=== PATIENT | female | born 1995 | race Caucasian/White ===

== ENCOUNTER 2016-05-15 18:22 | Emergency (ER) | payer OTHER ==
--- NOTE | ~2016-05-15 | CT16 ---
[facility] A Service of [facility] RADIOLOGY TEXT RESULTS PATIENT: JORDY RESENDEZ LOCATION: SED : [birth year] UNIT #: [id number] AGE: [address]: Araceli Barraza APRN SEX: F ORDER DR: [id number] [place] [id number] E MR#: [id number] #: [id number] NAME: JORDY RESENDEZ : 1995 SEX: F STUDY DATE/TIME: 05/15/2016 19:26 UNIT: SED ROOM: STUDY DESCRIPTION: CT Angio Chest for PE Attending Physician: Araceli Barraza A.P.R.N. Ordering Physician: Araceli Barraza A.P.R.N. Primary Care Physician: No Primary Care Physician MEDICAL IMAGING REPORT This report is preliminary unless electronic signature is present. EXAM CTA chest, PE protocol. DATE OF EXAM 05/15/2016 INDICATIONS Chest pain, shortness of air and cough for the past 3 days. PROCEDURE Contrast-enhanced CTA of the chest attention on opacification of pulmonary arteries. Coronal 3-D MIP and sagittal reformatted images were reconstructed and submitted. 100 mL of Isovue-370. COMPARISON None. TECHNIQUE NOTE: This CT exam was performed with one or more of the following radiation dose reduction techniques: automatic exposure control, adjustment of mA and/or kV according to patient size, and iterative reconstruction. FINDINGS No evidence for pulmonary embolus. No evidence for acute aortic injury. No adenopathy. No acute findings in the included upper abdomen. There are a few small areas of ground-glass opacity right middle lobe and right upper lobe. No dense consolidation. No aggressive-appearing bone lesion. IMPRESSION 1. No evidence for pulmonary embolus. 2. A few patchy areas of ground-glass opacity in the right upper lobe and right middle lobe, probably representing infectious or [facility] A Service of [facility] RADIOLOGY TEXT RESULTS PATIENT: JORDY RESENDEZ LOCATION: SED : [birth year] UNIT #: [id number] AGE: [address]: Araceli Barraza APRN SEX: F ORDER DR: inflammatory change. 3. No dense consolidation. Dictated by... James Whatley M.D. THIS IS AN ELECTRONICALLY VERIFIED REPORT James Whatley M.D. at 05/17/2016 7:00 AM JESICA/isabela TD: 05/15/2016 22:33 JOB #: [id number] MEDICAL IMAGING REPORT
[~2016-05-15 18:22] MED LIST: DIFLUCAN PO; MACROBID100 MG DOB; MACROBID100 MG PO; MYCOLOG-II15 GM CR EXT; NAPROSYN500 MG PO; PHENERGAN25 M1 PO
[2016-05-15 18:56] LABS: BLOOD UREA NITROGEN 7 mg/dL (9-23); CALCIUM SERUM 8.8 mg/dL (8.4-10.2); CARBON DIOXIDE 28 mmol/L (22-31); CHLORIDE 103 mmol/L (100-111); CREATININE SERUM 0.7 mg/dL (0.6-1.4); GLOM FILT RATE Estimated ABOVE60 mL/min (>60); GLUCOSE FASTING 112 mg/dL (70-110); POTASSIUM 3.3 mmol/L (3.5-5.1); SODIUM 140 mmol/L (135-145)
[2016-05-15 18:58] LABS: BASOPHIL# 0.1 X10e3 (0.0-0.3); BASOPHIL% 1.3 % (0.0-2.5); DIFF IND NO; EOSINOPHIL# 0.6 X10e3 (0.0-0.7); EOSINOPHIL% 7.5 % (0.0-7.0); HEMATOCRIT 29.6 % (35.0-45.0); HEMOGLOBIN 9.3 gm/dl (12.0-16.0); LYMPHOCYTE# 2.7 X10e3 (1.0-3.5); LYMPHOCYTE% 35.9 % (17.0-45.0); MEAN CELL VOLUME 71.9 FL (83-96); MEAN CORPUSCULAR HEMOGLOBIN 22.7 PG (28-34); MEAN CORPUSCULAR HGB CONC 31.5 g/dL (30-36); MEAN PLATELET VOLUME 8.4 FL (6.5-11.5); MONOCYTE# 0.6 X10e3 (0.0-1.0); MONOCYTE% 7.6 % (3.0-12.0); NEUTROPHIL# 3.5 X10e3 (1.5-7.1); NEUTROPHIL% 47.7 % (40.0-75.0); PLATELET COUNT 282 X10e3 (140-420); RED BLOOD COUNT 4.11 X10e6 (3.90-5.30); RED CELL DISTRIBUTION WIDTH 15.6 % (11.0-15.5); WHITE BLOOD COUNT 7.5 X10e3 (4.0-10.5)
[2016-05-15 19:13] LABS: INFLUENZA A NEG (NEG); INFLUENZA B NEG (NEG)
== END 2016-05-15 19:59 | disposition home or self-care (01) ==
LOC: SED 18:22
PROVIDERS: Nurse Practitioner
DX: J18.9 Pneumonia, unspecified organism (principal); D64.9 Anemia, unspecified; F17.200 Nicotine dependence, unspecified, uncomplicated; Z88.2 Allergy status to sulfonamides; Z88.1 Allergy status to other antibiotic agents
CPT/HCPCS: 36415; 71275; 80048; 85025; 87804; 94640; 96361; 96374; 99284; J2930; Q9967